=== PATIENT | female | born 1965 | race Caucasian/White ===

== ENCOUNTER 2022-06-08 13:00 | Inpatient (IN) ==
[2022-06-08] MEDS ORDERED: DILTIAZEM 100 MG VIAL.ADD IV ONE (14:14)
[2022-06-08] MEDS ORDERED: DILTIAZEM 25 MG/5 ML VIAL IV STA (14:15)
[2022-06-08] MEDS ORDERED: DILTIAZEM 25 MG/5 ML VIAL IV ONE (14:15)
[2022-06-08] MEDS: DILTIAZEM INJ 100 MG in SODIUM CHLORIDE 0.9% 100 ML IV SCH ×2 (14:23→21:26)
[2022-06-08] MEDS ORDERED: ONDANSETRON 4 MG/2 ML VIAL ONE (14:24)
[2022-06-08 14:31] LABS: Basophils # 0.1 10*3/uL (0.0-0.2); Basophils % 0.7 % (0.0-0.8); Eosinophils # 0.7 10*3/uL (0.0-0.87); Eosinophils % 7.5 % (0.00-10.9); Hematocrit 42.9 VOL% (35.7-47.0); Hemoglobin 14.5 GM/DL (12.0-16.0); Immature Granulocytes % 0.2 %; Immature Granulocytes Absolute 0.02 #; Lymphocytes # 2.9 10*3/uL (1.4-4.0); Lymphocytes % 31.6 % (21.3-54.2); Mean Corpuscular HGB Conc 33.8 GM/DL (32-36); Mean Corpuscular Volume 89.7 FL (87-102); Mean Platelet Volume 9.8 FL (9.6-12.0); Monocytes # 0.6 10*3/uL (0.11-0.8); Monocytes % 6.8 % (1.7-12.7); Neutrophils % 53.2 % (38.7-73.9); Platelet Count 282 T/CUMM (130-400); Red Blood Count 4.78 MC/CUMM (3.8-5.5); Red Cell Distribution Width 12.3 % (9.3-17.3); White Blood Count 9.1 T/CUMM (4-12)
[2022-06-08 14:43] LABS: INR 0.9; PT Patient Result 10.2 SECS (10.1-12.1); Partial Thromboplastin Time 28.2 SECS (23.7-32.9)
[2022-06-08 14:58] LABS: Albumin 4.1 G/DL (3.4-5.0); Bilirubin,Total 0.4 MG/DL (0.20-1.00); Calcium 9.8 MG/DL (8.5-10.1); Free T4 (Free Thyroxine) 1.19 NG/DL (0.76-1.46); Osmolality,Calculated 279.3 MOS/KG (273-304); Potassium 3.3 MMOL/L (3.5-5.1); Thyroid Stimulating Hormone 0.737 uIU/ml (0.358-3.74); Total Protein 7.6 G/DL (6.4-8.2)
[2022-06-08] MEDS ORDERED: propofoL 200 MG/20 ML VIAL IV ONE (14:59)
[2022-06-08] MEDS ORDERED: SUCCINYLCHOLINE 200 MG/10 ML VIAL ONE (14:59)
[2022-06-08] MEDS ORDERED: LIDOCAINE 2% 5 ML VIAL ONE (14:59)
[2022-06-08] MEDS ORDERED: ROCURONIUM 50 MG/5 ML VIAL IV ONE (14:59)
[2022-06-08] MEDS ORDERED: PHENYLEPHRINE 1 MG/10 ML SYRINGE IV ONE (14:59)
[2022-06-08] MEDS ORDERED: SEVOFLURANE 1 UNIT/15 MINUTE INH ONE (14:59)
[2022-06-08] MEDS ORDERED: fentaNYL 100 MCG/2 ML VIAL ONE (15:00)
[2022-06-08] MEDS ORDERED: MIDAZOLAM 2 MG/2 ML VIAL ONE (15:00)
[2022-06-08] MEDS ORDERED: SCOPOLAMINE 1.5 MG PATCH TRANSDERM ONE (15:15)
[2022-06-08] MEDS ORDERED: ONDANSETRON 4 MG/2 ML VIAL IV PRN (15:38)
[2022-06-08] MEDS ORDERED: ACETAMINOPHEN 325 MG TABLET PO PRN (15:38)
[2022-06-08] MEDS ORDERED: PROMETHAZINE 25 MG TABLET PO PRN (15:49)
[2022-06-08] MEDS ORDERED: POTASSIUM CHLORIDE 20 MEQ TABLET PO STA (15:54)
[2022-06-08] MEDS ORDERED: POTASSIUM CHLORIDE 20 MEQ TABLET PO ONE (16:17)
[2022-06-08] MEDS ORDERED: NAPROXEN 250 MG TABLET PO PRN (17:00)
[2022-06-08] MEDS: ENOXAPARIN 80 MG/0.8 ML SYRINGE SUBCUT SCH (18:56)
[2022-06-08] MEDS: ATORVASTATIN 10 MG TABLET PO SCH (21:25)
[2022-06-08] MEDS: ZALEPLON 5 MG CAPSULE PO SCH ×2 (21:25→21:40)
[2022-06-09 06:02] LABS: Basophils % 0.2 % (0.0-0.8); Eosinophils # 0.2 10*3/uL (0.0-0.87); Eosinophils % 1.3 % (0.00-10.9); Hematocrit 39.8 VOL% (35.7-47.0); Hemoglobin 13.3 GM/DL (12.0-16.0); Immature Granulocytes % 0.3 %; Immature Granulocytes Absolute 0.04 #; Lymphocytes # 2.5 10*3/uL (1.4-4.0); Mean Corpuscular HGB Conc 33.4 GM/DL (32-36); Mean Corpuscular Volume 92.1 FL (87-102); Mean Platelet Volume 10.1 FL (9.6-12.0); Monocytes # 0.7 10*3/uL (0.11-0.8); Monocytes % 5.4 % (1.7-12.7); Neutrophils % 73.8 % (38.7-73.9); Platelet Count 265 T/CUMM (130-400); Red Blood Count 4.32 MC/CUMM (3.8-5.5); Red Cell Distribution Width 12.3 % (9.3-17.3); White Blood Count 13.2 T/CUMM (4-12)
[2022-06-09 06:22] LABS: Albumin 3.5 G/DL (3.4-5.0); Bilirubin,Total 0.7 MG/DL (0.20-1.00); Calcium 9.5 MG/DL (8.5-10.1); Osmolality,Calculated 281.4 MOS/KG (273-304); Potassium 3.6 MMOL/L (3.5-5.1); Total Protein 6.5 G/DL (6.4-8.2)
[2022-06-09] MEDS: LEVOTHYROXINE 88 MCG TABLET PO SCH (06:36)
[2022-06-09] MEDS: ENOXAPARIN 80 MG/0.8 ML SYRINGE SUBCUT SCH ×2 (06:38→18:42)
[2022-06-09] MEDS: DILTIAZEM INJ 100 MG in SODIUM CHLORIDE 0.9% 100 ML IV SCH ×3 (08:16→23:30)
[2022-06-09] MEDS ORDERED: METOPROLOL TARTRATE 25 MG TABLET PO SCH (09:40)
[2022-06-09] MEDS ORDERED: PHENOL 1.4% THROAT SPRAY 177 ML BOTTLE PO PRN (09:55)
[2022-06-09] MEDS: PANTOPRAZOLE 40 MG TABLET PO SCH (12:09)
[2022-06-09] MEDS: POTASSIUM CHLORIDE 10 MEQ TABLET PO SCH (12:09)
[2022-06-09] MEDS: SOTALOL 80 MG TABLET PO SCH ×2 (12:09→21:28)
[2022-06-09] MEDS ORDERED: ENOXAPARIN 40 MG/0.4 ML SYRINGE SUBCUT SCH (17:00)
[2022-06-09] MEDS: ATORVASTATIN 10 MG TABLET PO SCH (21:28)
[2022-06-09] MEDS: ZALEPLON 5 MG CAPSULE PO SCH (21:29)
[2022-06-10] MEDS: LEVOTHYROXINE 88 MCG TABLET PO SCH (05:37)
[2022-06-10] MEDS: ENOXAPARIN 80 MG/0.8 ML SYRINGE SUBCUT SCH (05:41)
[2022-06-10 06:15] LABS: Basophils # 0.1 10*3/uL (0.0-0.2); Basophils % 0.6 % (0.0-0.8); Eosinophils # 0.5 10*3/uL (0.0-0.87); Eosinophils % 5.6 % (0.00-10.9); Hematocrit 38.7 VOL% (35.7-47.0); Hemoglobin 12.7 GM/DL (12.0-16.0); Immature Granulocytes % 0.1 %; Immature Granulocytes Absolute 0.01 #; Lymphocytes # 3.1 10*3/uL (1.4-4.0); Mean Corpuscular HGB Conc 32.8 GM/DL (32-36); Mean Corpuscular Volume 91.7 FL (87-102); Mean Platelet Volume 10.3 FL (9.6-12.0); Monocytes # 0.7 10*3/uL (0.11-0.8); Monocytes % 7.8 % (1.7-12.7); Neutrophils % 49.9 % (38.7-73.9); Platelet Count 224 T/CUMM (130-400); Red Blood Count 4.22 MC/CUMM (3.8-5.5); Red Cell Distribution Width 12.4 % (9.3-17.3); White Blood Count 8.6 T/CUMM (4-12)
[2022-06-10 06:17] LABS: Calcium 9.3 MG/DL (8.5-10.1); Osmolality,Calculated 278.4 MOS/KG (273-304); Potassium 3.4 MMOL/L (3.5-5.1); Risk Ratio 4.61
[2022-06-10] MEDS: SOTALOL 80 MG TABLET PO SCH ×2 (09:59→20:37)
[2022-06-10] MEDS: PANTOPRAZOLE 40 MG TABLET PO SCH (09:59)
[2022-06-10] MEDS: POTASSIUM CHLORIDE 10 MEQ TABLET PO SCH (09:59)
[2022-06-10] MEDS ORDERED: POTASSIUM CHLORIDE 20 MEQ TABLET PO ONE (13:50)
[2022-06-10] MEDS: DILTIAZEM INJ 100 MG in SODIUM CHLORIDE 0.9% 100 ML IV SCH (18:25)
[2022-06-10] MEDS: APIXABAN 5 MG TABLET PO SCH (20:37)
[2022-06-10] MEDS: ZALEPLON 5 MG CAPSULE PO SCH (20:40)
[2022-06-10] MEDS: ATORVASTATIN 10 MG TABLET PO SCH (21:01)
[2022-06-11 05:12] LABS: Basophils # 0.1 10*3/uL (0.0-0.2); Basophils % 0.6 % (0.0-0.8); Eosinophils # 0.6 10*3/uL (0.0-0.87); Eosinophils % 7.2 % (0.00-10.9); Hematocrit 36.3 VOL% (35.7-47.0); Hemoglobin 11.9 GM/DL (12.0-16.0); Immature Granulocytes % 0.2 %; Immature Granulocytes Absolute 0.02 #; Lymphocytes # 3.2 10*3/uL (1.4-4.0); Lymphocytes % 36.2 % (21.3-54.2); Mean Corpuscular HGB Conc 32.8 GM/DL (32-36); Mean Corpuscular Volume 92.4 FL (87-102); Mean Platelet Volume 10.2 FL (9.6-12.0); Monocytes # 0.8 10*3/uL (0.11-0.8); Monocytes % 8.5 % (1.7-12.7); Neutrophils % 47.3 % (38.7-73.9); Platelet Count 221 T/CUMM (130-400); Red Blood Count 3.93 MC/CUMM (3.8-5.5); Red Cell Distribution Width 12.4 % (9.3-17.3)
[2022-06-11 05:36] LABS: Calcium 9.4 MG/DL (8.5-10.1); Osmolality,Calculated 281.3 MOS/KG (273-304); Potassium 3.5 MMOL/L (3.5-5.1)
[2022-06-11] MEDS: LEVOTHYROXINE 88 MCG TABLET PO SCH (05:46)
[2022-06-11] MEDS: POTASSIUM CHLORIDE 10 MEQ TABLET PO SCH (09:25)
[2022-06-11] MEDS: SOTALOL 80 MG TABLET PO SCH (09:25)
[2022-06-11] MEDS: PANTOPRAZOLE 40 MG TABLET PO SCH (09:25)
[2022-06-11] MEDS: APIXABAN 5 MG TABLET PO SCH (09:25)
[2022-06-11 09:47] VITALS: BP 95/59
[2022-06-28] MEDS ORDERED: CYANOCOBALAMIN 1000 MCG/1 ML VIAL IM SCH (09:00)
== END 2022-06-11 11:39 | disposition home or self-care (01) | DRG 310 ==
LOC: N.ED 13:00 → N.EDINP 13:00 → N.TELES 15:10 → SUATTDRO 15:38 → N.TELES 16:28 → SUATTDRO 06-09 13:22
PROVIDERS: ADMIT Internal Medicine; ATTEND Hospitalist

== ENCOUNTER 2022-06-16 02:20 | Inpatient (IN) ==
[2022-06-16] MEDS ORDERED: ONDANSETRON 4 MG/2 ML VIAL IV ONE (02:44)
[2022-06-16] MEDS ORDERED: SODIUM CHLORIDE 0.9% 1,000 ML IV STA ×3 (02:44→04:25)
[2022-06-16 02:52] LABS: Basophils % 0.4 % (0.0-0.8); Eosinophils # 0.2 10*3/uL (0.0-0.87); Eosinophils % 1.6 % (0.00-10.9); Hematocrit 28.8 VOL% (35.7-47.0); Hemoglobin 9.3 GM/DL (12.0-16.0); Immature Granulocytes % 0.6 %; Immature Granulocytes Absolute 0.07 #; Lymphocytes # 3.3 10*3/uL (1.4-4.0); Lymphocytes % 30.3 % (21.3-54.2); Mean Corpuscular HGB Conc 32.3 GM/DL (32-36); Mean Corpuscular Volume 93.8 FL (87-102); Mean Platelet Volume 10.5 FL (9.6-12.0); Monocytes # 0.4 10*3/uL (0.11-0.8); Neutrophils % 63.1 % (38.7-73.9); Platelet Count 325 T/CUMM (130-400); Red Blood Count 3.07 MC/CUMM (3.8-5.5); Red Cell Distribution Width 12.6 % (9.3-17.3); White Blood Count 10.9 T/CUMM (4-12)
[2022-06-16 03:10] LABS: Albumin 2.9 G/DL (3.4-5.0); Bilirubin,Total 0.5 MG/DL (0.20-1.00); Calcium 8.5 MG/DL (8.5-10.1); Osmolality,Calculated 291.5 MOS/KG (273-304); Potassium 3.8 MMOL/L (3.5-5.1); Total Protein 5.6 G/DL (6.4-8.2)
[2022-06-16] MEDS ORDERED: PANTOPRAZOLE INJ 80 MG in SODIUM CHLORIDE 0.9% 100 ML IV ONE ×2 (03:47→04:00)
[2022-06-16 04:26] LABS: Hematocrit 25.7 VOL% (35.7-47.0); Hemoglobin 8.3 GM/DL (12.0-16.0)
[2022-06-16 04:40] LABS: Mucus,Urine Occasional /LPF (Occasional); RBC,Urine <1 /HPF (0-4); Squamous Epithelial Cell,Urine Occasional /HPF (0-10); Urine Appearance Clear (Clear); Urine Color Yellow (Yellow)
[2022-06-16 04:41] LABS: Bilirubin,Urine Negative (Negative); Blood, Urine Negative (Negative); Glucose,Urine (UA) Negative (Negative); Ketones,Urine Negative (Negative); Nitrite,Urine Negative (Negative); Protein,Urine Negative (Negative); Urine Urobilinogen 0.2 eU/dL (<2.0)
[2022-06-16] MEDS: PANTOPRAZOLE INJ 80 MG in SODIUM CHLORIDE 0.9% 100 ML IV ONE ×2 (04:47→05:54)
[2022-06-16] MEDS: PANTOPRAZOLE INJ 200 MG in SODIUM CHLORIDE 0.9% 250 ML IV SCH (05:50)
[2022-06-16] MEDS ORDERED: GLUCAGON 1 MG VIAL IM PRN (06:13)
[2022-06-16] MEDS ORDERED: DEXTROSE 10% 250 ML BAG IV PRN (06:13)
[2022-06-16] MEDS ORDERED: ACETAMINOPHEN 325 MG TABLET PO PRN (06:13)
[2022-06-16] MEDS ORDERED: SODIUM CHLORIDE 0.9% 1,000 ML IV PRN (06:25)
[2022-06-16] MEDS: LACTATED RINGERS 1,000 ML IV SCH ×3 (06:56→14:38)
[2022-06-16] MEDS ORDERED: LIDOCAINE 2% 5 ML VIAL ONE (11:48)
[2022-06-16] MEDS ORDERED: propofoL 200 MG/20 ML VIAL IV ONE (11:48)
[2022-06-16] MEDS ORDERED: PHENYLEPHRINE 1 MG/10 ML SYRINGE IV ONE (11:48)
[2022-06-16 13:32] LABS: Hematocrit 24.6 VOL% (35.7-47.0); Hemoglobin 7.7 GM/DL (12.0-16.0)
[2022-06-16] MEDS ORDERED: ZALEPLON 5 MG CAPSULE PO SCH (21:30)
[2022-06-16] MEDS: LUNESTA 3 MG PO SCH (21:45)
[2022-06-16] MEDS: ONDANSETRON 4 MG/2 ML VIAL IV PRN (22:00)
[2022-06-16 23:09] LABS: Hematocrit 25.7 VOL% (35.7-47.0); Hemoglobin 8.5 GM/DL (12.0-16.0)
[2022-06-17] MEDS: PANTOPRAZOLE INJ 200 MG in SODIUM CHLORIDE 0.9% 250 ML IV SCH (05:31)
[2022-06-17] MEDS: LACTATED RINGERS 1,000 ML IV SCH ×3 (05:31→11:20)
[2022-06-17 05:48] LABS: Basophils % 0.5 % (0.0-0.8); Eosinophils # 0.2 10*3/uL (0.0-0.87); Eosinophils % 3.3 % (0.00-10.9); Hematocrit 25.5 VOL% (35.7-47.0); Hemoglobin 8.6 GM/DL (12.0-16.0); Immature Granulocytes % 0.5 %; Immature Granulocytes Absolute 0.03 #; Lymphocytes # 2.7 10*3/uL (1.4-4.0); Lymphocytes % 42.8 % (21.3-54.2); Mean Corpuscular HGB Conc 33.7 GM/DL (32-36); Mean Corpuscular Volume 90.7 FL (87-102); Mean Platelet Volume 10.4 FL (9.6-12.0); Monocytes # 0.4 10*3/uL (0.11-0.8); Monocytes % 5.5 % (1.7-12.7); Neutrophils % 47.4 % (38.7-73.9); Red Blood Count 2.81 MC/CUMM (3.8-5.5); Red Cell Distribution Width 13.5 % (9.3-17.3)
[2022-06-17 06:04] LABS: Platelet Count 176 T/CUMM (130-400); White Blood Count 6.3 T/CUMM (4-12)
[2022-06-17 06:16] LABS: Albumin 2.5 G/DL (3.4-5.0); Bilirubin,Total 0.6 MG/DL (0.20-1.00); Calcium 8.2 MG/DL (8.5-10.1); Osmolality,Calculated 284.1 MOS/KG (273-304); Potassium 3.3 MMOL/L (3.5-5.1)
[2022-06-17] MEDS ORDERED: POTASSIUM CHLORIDE 20 MEQ TABLET PO ONE (08:00)
[2022-06-17 10:49] LABS: Hematocrit 26.6 VOL% (35.7-47.0); Hemoglobin 8.8 GM/DL (12.0-16.0)
[2022-06-17] MEDS: POLYETHYLENE GLYCOL POWDER 17 GM PACK PO SCH ×2 (11:20→22:27)
[2022-06-17] MEDS: ONDANSETRON 4 MG/2 ML VIAL IV PRN (20:32)
[2022-06-17 22:08] LABS: Hematocrit 25.9 VOL% (35.7-47.0); Hemoglobin 8.6 GM/DL (12.0-16.0)
[2022-06-17] MEDS: LUNESTA 3 MG PO SCH (22:27)
[2022-06-18 06:00] LABS: Basophils % 0.5 % (0.0-0.8); Eosinophils # 0.3 10*3/uL (0.0-0.87); Eosinophils % 3.3 % (0.00-10.9); Hematocrit 26.6 VOL% (35.7-47.0); Hemoglobin 8.6 GM/DL (12.0-16.0); Immature Granulocytes % 0.5 %; Immature Granulocytes Absolute 0.04 #; Lymphocytes # 2.6 10*3/uL (1.4-4.0); Lymphocytes % 32.1 % (21.3-54.2); Mean Corpuscular HGB Conc 32.3 GM/DL (32-36); Mean Corpuscular Volume 93.3 FL (87-102); Mean Platelet Volume 10.5 FL (9.6-12.0); Monocytes # 0.5 10*3/uL (0.11-0.8); Monocytes % 5.8 % (1.7-12.7); Neutrophils % 57.8 % (38.7-73.9); Platelet Count 205 T/CUMM (130-400); Red Blood Count 2.85 MC/CUMM (3.8-5.5); Red Cell Distribution Width 13.2 % (9.3-17.3); White Blood Count 7.9 T/CUMM (4-12)
[2022-06-18] MEDS: PANTOPRAZOLE INJ 200 MG in SODIUM CHLORIDE 0.9% 250 ML IV SCH (06:18)
[2022-06-18 06:28] LABS: Albumin 2.8 G/DL (3.4-5.0); Bilirubin,Total 0.5 MG/DL (0.20-1.00); Calcium 8.5 MG/DL (8.5-10.1); Potassium 3.6 MMOL/L (3.5-5.1); Total Protein 5.7 G/DL (6.4-8.2)
[2022-06-18] MEDS: LACTATED RINGERS 1,000 ML IV SCH ×2 (07:18→14:41)
[2022-06-18] MEDS: POLYETHYLENE GLYCOL POWDER 17 GM PACK PO SCH ×2 (08:27→20:56)
[2022-06-18] MEDS: PANTOPRAZOLE 40 MG TABLET PO SCH ×2 (08:27→16:40)
[2022-06-18 10:31] LABS: Hematocrit 26.5 VOL% (35.7-47.0); Hemoglobin 8.8 GM/DL (12.0-16.0)
[2022-06-18] MEDS: LUNESTA 3 MG PO SCH (20:57)
[2022-06-18 22:04] LABS: Hematocrit 25.9 VOL% (35.7-47.0); Hemoglobin 8.6 GM/DL (12.0-16.0)
[2022-06-19 06:40] LABS: Basophils % 0.7 % (0.0-0.8); Eosinophils # 0.3 10*3/uL (0.0-0.87); Eosinophils % 5.3 % (0.00-10.9); Hematocrit 25.4 VOL% (35.7-47.0); Hemoglobin 8.4 GM/DL (12.0-16.0); Immature Granulocytes % 0.9 %; Immature Granulocytes Absolute 0.05 #; Lymphocytes # 2.2 10*3/uL (1.4-4.0); Lymphocytes % 38.7 % (21.3-54.2); Mean Corpuscular HGB Conc 33.1 GM/DL (32-36); Mean Corpuscular Volume 92.4 FL (87-102); Mean Platelet Volume 10.6 FL (9.6-12.0); Monocytes # 0.4 10*3/uL (0.11-0.8); Monocytes % 7.7 % (1.7-12.7); Neutrophils % 46.7 % (38.7-73.9); Platelet Count 207 T/CUMM (130-400); Red Blood Count 2.75 MC/CUMM (3.8-5.5); Red Cell Distribution Width 13.1 % (9.3-17.3); White Blood Count 5.7 T/CUMM (4-12)
[2022-06-19 06:54] LABS: Albumin 2.8 G/DL (3.4-5.0); Bilirubin,Total 0.5 MG/DL (0.20-1.00); Calcium 8.7 MG/DL (8.5-10.1); Osmolality,Calculated 278.3 MOS/KG (273-304); Potassium 3.1 MMOL/L (3.5-5.1); Total Protein 5.7 G/DL (6.4-8.2)
[2022-06-19] MEDS: LACTATED RINGERS 1,000 ML IV SCH (07:24)
[2022-06-19] MEDS: PANTOPRAZOLE 40 MG TABLET PO SCH (08:15)
[2022-06-19] MEDS: POTASSIUM CHLORIDE 20 MEQ TABLET PO SCH ×2 (08:16→09:50)
[2022-06-19] MEDS: POLYETHYLENE GLYCOL POWDER 17 GM PACK PO SCH (08:17)
[2022-06-19 08:54] VITALS: BP 95/64
== END 2022-06-19 11:18 | disposition home or self-care (01) | DRG 380 ==
LOC: SUATTDRO → N.ED 02:20 → N.EDINP 06:13 → SUATTDRO 06:13 → N.EDINP 11:03 → N.3E 12:37
PROVIDERS: ADMIT Family Medicine; ATTEND Internal Medicine